=== PATIENT | female | born 1995 | race Hispanic/Latino ===

== ENCOUNTER 2022-06-19 17:08 | Observation (INO) | payer MEDICAID ==
[~2022-06-19] VITALS: Ht 154.9 cm; Wt 66.2 kg
[2022-06-19 17:13] VITALS: BP 124/69
[2022-06-19 18:05] LABS: APPEARANCE,URINE CLEAR (CLEAR); BILIRUBIN,URINE NEGATIVE (NEGATIVE); COLOR,URINE COLORLESS (YELLOW); GLUCOSE, URINE (UA) NEGATIVE (NEGATIVE); KETONES,URINE NEGATIVE (NEGATIVE); LEUKOCYTE ESTERASE ,URINE NEGATIVE Leu/uL (NEGATIVE); NITRATE,URINE NEGATIVE (NEGATIVE); OCCULT BLOOD,URINE NEGATIVE (NEGATIVE); PROTEIN,URINE NEGATIVE (NEGATIVE); UROBILINOGEN,URINE 0.2 mg/dL (0.2-1.0)
== END 2022-06-19 19:55 | disposition home or self-care (01) ==
LOC: EDH 17:08 → LDH 17:09
PROVIDERS: ADMIT Obstetrics & Gynecology; ATTEND Obstetrics & Gynecology
DX: O99.323 Drug use complicating pregnancy, third trimester (principal); F14.90 Cocaine use, unspecified, uncomplicated; Z3A.30 30 weeks gestation of pregnancy; W08.XXXA Fall from other furniture, initial encounter; Y93.89 Activity, other specified; Y92.89 Other specified places as the place of occurrence of the external cause
CPT/HCPCS: 59025; 81003; 76819; G0378 ×3; G0379

== ENCOUNTER 2022-08-09 14:47 | Inpatient (IN) | payer OTHER, MEDICAID ==
[~2022-08-09] VITALS: Ht 157.5 cm; Wt 68.0 kg
[2022-08-09 15:27] LABS: HEMATOCRIT 28.3 % (36-48); MEAN CORPUSCULAR HEMOGLOBIN 23.2 pg (27.0-33.0); MEAN CORPUSCULAR HGB CONC 31.1 g/dL (32.0-36.0); MEAN CORPUSCULAR VOLUME 74.7 fL (79-99); NUCLEATED RED BLOOD CELLS 0.3 % (0.0-0.19); PLATELET COUNT (AUTO) 283 K/uL (130-400); RED BLOOD CELL COUNT(AUTO) 3.79 MIL/uL (4.00-5.50); RED CELL DISTRIBUTION WIDTH 16.8 % (11.0-15.5); WHITE BLOOD COUNT (AUTO) 6.9 K/uL (4.8-10.8)
[2022-08-09] MEDS: OXYTOCIN-LR 20 UNITS/1000 ML 1,000 ML IV SCH (15:30)
[2022-08-09] MEDS ORDERED: LACTATED RINGERS 500 ML 500 ML IV PRN (15:30)
[2022-08-09] MEDS ORDERED: NALOXONE HCL 0.4 MG/1 ML ML IV PRN (15:30)
[2022-08-09] MEDS ORDERED: ROPIVACAINE 0.2% 100ML VIAL 100 ML EP SCH (15:30)
[2022-08-09] MEDS ORDERED: EPHEDRINE SULFATE 50 MG/ML AMPULE IVP PRN (15:30)
[2022-08-09] MEDS ORDERED: AMPICILLIN 2GM+NS 100ML 100 ML IV SCH (16:00)
[2022-08-09] MEDS: LACTATED RINGERS 1000ML 1,000 ML IV PRN ×2 (16:32→19:17)
[2022-08-09] MEDS ORDERED: AMPICILLIN 1GM+NS 50ML 50 ML IV ONE (20:02)
[2022-08-10] MEDS: AMPICILLIN 1GM+NS 50ML 50 ML IV SCH ×4 (00:06→11:28)
[2022-08-10] MEDS: OXYTOCIN-LR 20 UNITS/1000 ML 1,000 ML IV SCH ×3 (04:58→15:30)
[2022-08-10] MEDS: BUTORPHANOL TARTRATE 2 MG/ML IVP PRN ×2 (08:57→12:34)
[2022-08-10] MEDS: LACTATED RINGERS 1000ML 1,000 ML IV PRN (11:28)
[2022-08-10] MEDS ORDERED: METHYLERGONOVINE MALEATE 0.2 MG/1 ML ML ONE ×2 (15:54→17:11)
[2022-08-10] MEDS ORDERED: TRANEXAMIC ACID 1000MG/10ML ONE (15:55)
[2022-08-10] MEDS ORDERED: MISOPROSTOL 200 MCG TABLET ONE (15:56)
[2022-08-10] MEDS ORDERED: CALDOLOR 800MG+NS 250ML 250 ML IV PRN (16:00)
[2022-08-10] MEDS ORDERED: CEFAZOLIN SODIUM 2 GM VIAL IVP PRN (16:00)
[2022-08-10] MEDS ORDERED: MORPHINE PF 100MG/10ML AMP IV ONE (16:10)
[2022-08-10] MEDS ORDERED: OXYTOCIN 10 USP UNITS/ML ONE ×2 (16:28→16:36)
[2022-08-10] MEDS ORDERED: MEPERIDINE-PF 25 MG/ML SYG ONE ×2 (16:56→17:49)
[2022-08-10] MEDS ORDERED: SIMETHICONE 80 MG TAB.CHEW PO PRN (17:00)
[2022-08-10] MEDS ORDERED: ACETAMINOPHEN WITH CODEINE 1 TAB TAB PO PRN (17:00)
[2022-08-10] MEDS ORDERED: DEXTROSE 5 %-0.45 % NACL 1,000 ML IV PRN (17:00)
[2022-08-10] MEDS ORDERED: OXYTOCIN-LR 20 UNITS/1000 ML 1,000 ML IV PRN (17:00)
[2022-08-10] MEDS ORDERED: ACETAMINOPHEN 500 MG TABLET PO PRN (17:00)
[2022-08-10] MEDS ORDERED: BISACODYL 10 MG SUPP.RECT RC PRN (17:00)
[2022-08-10] MEDS ORDERED: LANOLIN 30GM OINTMENT TP PRN (17:00)
[2022-08-10] MEDS ORDERED: PROMETHAZINE HCL 25 MG/ML 1ML AMPULE IM PRN (17:00)
[2022-08-10] MEDS ORDERED: HYDROCODONE/ACETAMINOPHEN 5/325 MG TAB PO PRN (17:00)
[2022-08-10] MEDS ORDERED: MEPERIDINE-PF 75 MG/ML SYG IM PRN (17:00)
[2022-08-10] MEDS ORDERED: DIPHENHYDRAMINE HCL 25 MG CAPSULE PO PRN (17:00)
[2022-08-10] MEDS ORDERED: 0.9%NACL 10ML VIAL IVP PRN (17:00)
[2022-08-10] MEDS ORDERED: MEPERIDINE-PF 25 MG/ML SYG IVP ONE (18:00)
[2022-08-10] MEDS ORDERED: DiphenhydrAMINE HCL 50 MG/ML VIAL IVP PRN (18:30)
[2022-08-10] MEDS ORDERED: NALOXONE HCL 0.4 MG/1 ML ML IVP PRN ×3 (18:30)
[2022-08-10] MEDS ORDERED: EPHEDRINE SULFATE 50 MG/ML AMPULE IVP PRN (18:30)
[2022-08-10] MEDS ORDERED: ONDANSETRON 4MG INJ IVP PRN (18:30)
[2022-08-10 20:03] VITALS: BP 122/79
[2022-08-10] MEDS ORDERED: PREN-154 PO (20:30)
[2022-08-10] MEDS ORDERED: MESA1.2T3 PO (20:30)
[2022-08-10] MEDS ORDERED: LEVO25CA4 PO (20:30)
[2022-08-10] MEDS: DOCUSATE SODIUM 100 MG CAP PO SCH (21:25)
[2022-08-10 22:33] VITALS: BP 112/64
[2022-08-11] MEDS: CALDOLOR 800MG+NS 250ML 250 ML IV SCH ×2 (00:34→08:43)
[2022-08-11] MEDS: IBUPROFEN 800 MG TAB PO SCH ×4 (00:34→16:55)
[2022-08-11 02:37] VITALS: BP 101/59
[2022-08-11 06:44] LABS: HEMATOCRIT 25.9 % (36-48); MEAN CORPUSCULAR HEMOGLOBIN 23.3 pg (27.0-33.0); MEAN CORPUSCULAR HGB CONC 30.5 g/dL (32.0-36.0); MEAN CORPUSCULAR VOLUME 76.4 fL (79-99); RED BLOOD CELL COUNT(AUTO) 3.39 MIL/uL (4.00-5.50)
[2022-08-11 07:20] VITALS: BP 97/57
[2022-08-11] MEDS: LIDOCAINE 5% TOPICAL PATCH TP SCH (08:44)
[2022-08-11] MEDS: DOCUSATE SODIUM 100 MG CAP PO SCH ×2 (08:44→20:34)
[2022-08-11 11:51] VITALS: BP 91/51
[2022-08-11 16:12] VITALS: BP 113/72
[2022-08-11 19:13] VITALS: BP 109/72
[2022-08-11 22:25] VITALS: BP 101/64
[2022-08-12] MEDS: IBUPROFEN 800 MG TAB PO SCH ×2 (00:31→08:52)
[2022-08-12 02:17] VITALS: BP 112/68
[2022-08-12 07:30] VITALS: BP 103/67
[2022-08-12] MEDS: DOCUSATE SODIUM 100 MG CAP PO SCH (08:52)
[2022-08-12] MEDS: LIDOCAINE 5% TOPICAL PATCH TP SCH (08:52)
== END 2022-08-12 11:15 | disposition home or self-care (01) | DRG 788 ==
LOC: LDH 14:47 → OBSVTOIN 14:47 → WSH 08-10 20:00
PROVIDERS: ADMIT Obstetrics & Gynecology; ATTEND Obstetrics & Gynecology
PROC: 10D00Z1 Extraction of Products of Conception, Low, Open Approach (ICD-10-PCS; principal; 2022-08-10 16:27)
DX: O42.92 Full-term premature rupture of membranes, unspecified as to length of time between rupture and onset of labor (principal); O62.0 Primary inadequate contractions; D50.9 Iron deficiency anemia, unspecified; O99.02 Anemia complicating childbirth; Z37.0 Single live birth; Z3A.38 38 weeks gestation of pregnancy
CPT/HCPCS: 36415; 59510; 85014; 85018; 85027; 86850; 86900; 86901; 86923; 87340; G0378; J0290; J0595; J1741; J2175; J2210; J2274; J2590; J3490; J7120; Q0163